=== PATIENT | male | born 1975 | race African-American/Black ===

== ENCOUNTER 2017-03-23 15:40 | Emergency (ER) | payer SELFPAY ==
[2017-03-23] MEDS ORDERED: Ketorolac Tromethamine 60 MG/2 ML VIAL ONE (16:59)
== END 2017-03-23 17:07 | disposition home or self-care (01) ==
LOC: NAV ERS 15:40
DX: K02.9 Dental caries, unspecified (principal); F17.210 Nicotine dependence, cigarettes, uncomplicated
CPT/HCPCS: 96372; J1885